=== PATIENT | female | born 1970 | race Caucasian/White ===

== ENCOUNTER 2024-03-04 09:00 | Outpatient (RCR) | payer BC, SELFPAY ==
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
--- NOTE | 2024-03-04 09:17 | HP.PTDCSUM ---
Discharge Summary D/C summary: It has been my pleasure to treat CORKY KINNEY referred by Dr. Clive Robertson MD, with the diagnosis of R shoulder pain/fracture of scapula for a total of 9 visit(s). Discharge Date: 03/04/24 Please see the following information for a summary of their discharge status. Subjective Subjective: She has felt great all week. She has some anterior soreness when she lifts her arms and feels like something is popping in her shoulder blade. She is now able to put dishes up on the second shelf of her cupboard. Pain R shoulder blade pain: Pain Intensity (Out of 10): 1 Overall Improvement % Improvement: 95 Objective Objective/Function: R shoulder AROM flex 168, ABD 170, IR T12, and ER 57 Goals Goal 1:: I HEP Goal Progress: Goal Met Goal 2:: Increase R shoulder AROM (at the time of the eval: R shoulder AROM flex 70, ABD 80, IR to PSIS, and ER 50) Goal Progress: Goal Met Goal 3:: Be able to sleep on her back without pain Goal Progress: Goal Met Plan Plan: DC PT to HEP and pt will go back to Dr and see about RTW papers. She met all goals and feesl ready to go back to work D/C Information Discharge Comments: DC PT to HEP and back to physician for RTW papers d/c sentence: If there are questions or concerns regarding this patient's physical therapy, please feel free to call me at [phone]. Thank you for the referral of this patient. Sincerely, Lori Hensley, MPT Balance/Gait/Functional tests Balance/Special Test Scores Quick DASH Score: 4.5450 Improvement % Improvement: 95
== END 2024-03-04 19:00 | disposition home or self-care (01) ==
LOC: PT 09:00
PROVIDERS: Referring Provider Orthopaedic Surgery Sports Medicine; Visit Provider Orthopaedic Surgery Sports Medicine
DX: S42.101D Fracture of unspecified part of scapula, right shoulder, subsequent encounter for fracture with routine healing (principal); M25.511 Pain in right shoulder
CPT/HCPCS: 97110; 97140; 97161; 97530